=== PATIENT | male | born 1985 | race Caucasian/White ===

== ENCOUNTER 2017-09-09 17:17 | Emergency (ER) | payer OTHER ==
[2017-09-09 20:36] LABS: ABS Basophils 0.1 10^3/ul (0-0.2); ABS Eosinophils 0.2 10^3/ul (0-0.6); ABS Lymphocytes 3.3 10^3/ul (1.0-4.8); ABS Monocytes 0.4 10^3/ul (0-0.8); ABS Neutrophils 7.3 10^3/ul (1.5-7.7); ABS Nucleated RBC 0 10^3/ul; Eosinophil % 1.5 % (0-6); Hematocrit 47 % (42-52); Hemoglobin 16.2 g/dl (14.0-18.0); Lymphocyte % 29.1 % (25-47); Mean Corpuscular HGB Conc 34 g/dl (31-36); Mean Corpuscular Hemoglobin 28 pg (27-31); Mean Corpuscular Volume 83 fL (80-94); Mean Platelet Volume 9 um3 (7.4-10.4); Nucleated Red Blood Cells % 0; Platelet Count 236 10^3/ul (150-450); Red Blood Count 5.68 10^6/ul (4.0-5.4); Red Cell Distribution Width 14 % (10.5-15); White Blood Count 11.2 10^3/ul (3.5-10.8)
[2017-09-09] MEDS ORDERED: NS 0.9% 1000 ML* 1,000 ML IV ONE (20:55)
[2017-09-09 20:58] LABS: EGFR Non-African American 87.7 (>60)
--- NOTE | 2017-09-09 22:29 | RAD ---
INDICATION: Dizziness. COMPARISON: There are no prior studies available for comparison. TECHNIQUE: Contiguous axial sections of the brain were obtained from the skull base to the vertex without contrast. FINDINGS: The ventricles, cisterns and sulci are within normal limits. No significant focal abnormality or mass effect is seen. There is no evidence for hemorrhage. No significant focal osseous abnormality is seen. The visualized portion of the paranasal sinuses and mastoid air cells appear clear. IMPRESSION: NO EVIDENCE FOR ACUTE INTRACRANIAL ABNORMALITY.
[2017-09-09 23:08] VITALS: BP 127/81
--- NOTE | 2017-09-10 14:48 | ED ---
Joshua Restrepo Gabriel, scribed for Augie Joshua MD on 09/09/17 at 2054 . Dizziness - HPI Summary HPI Summary: This patient is a 31 year old M presenting to [facility] with a chief complaint of dizziness since yesterday. The patient describes it as poor balance/ lightheadedness worsened with ambulation. The patient rates the pain 0/10 in severity. Symptoms alleviated by lying. Patient denies nausea and poor PO intake. Patient denies blurred vision, v/d, and pain. Pt hashad similar symptoms in the past and was seen by a Local [employer] Associate in [facility] and diagnosed with arrhythmia for which he takes Metroprolol. - History Of Current Complaint Chief Complaint: EDDizziness Stated Complaint: DIZZY Time Seen by Provider: 09/09/17 20:39 Hx Obtained From: Patient Onset/Duration: Still Present Timing: Days - 1 Severity Initially: Mild Severity Currently: Mild Aggravating Factor(s): Other - walking Alleviating Factor(s): Rest, Lying Down Associated Signs And Symptoms: Positive: Negative - blurred vision, v/d, and pain., Other: - nausea and poor PO intakes. - Allergies/Home Medications Allergies/Adverse Reactions: Allergies Allergy/AdvReac Type Severity Reaction Status Date / Time No Known Allergies Allergy Verified 03/07/16 14:17 PMH/Surg Hx/FS Hx/Imm Hx Endocrine/Hematology History: Denies: Hx Anticoagulant Therapy, Hx Blood Disorders Cardiovascular History: Reports: Other Cardiovascular Problems/Disorders - PVC' s - no treated Respiratory History: Denies: Hx Asthma GI History: Denies: Hx Gastroesophageal Reflux Disease Musculoskeletal History: Denies: Hx Arthritis Sensory History: Reports: Hx Contacts or Glasses Opthamlomology History: Reports: Hx Contacts or Glasses Neurological History: Denies: Hx Headaches, Hx Migraine Psychiatric History: Denies: Hx Anxiety, Hx Depression Infectious Disease History: No Infectious Disease History: Denies: Traveled Outside the [place] in Last 30 Days - Family History Known Family History: Positive: Hypertension, Diabetes - Social History Occupation: Student Alcohol Use: Rare Hx Substance Use: No Substance Use Type: Reports: None Hx Tobacco Use: No Smoking Status (MU): Never Smoked Tobacco Review of Systems Positive: Other - decreased PO intake Negative: Blurred Vision Positive: Nausea. Negative: Vomiting, Diarrhea Musculoskeletal: Negative - pain Neurological: Other - dizziness All Other Systems Reviewed And Are Negative: Yes Physical Exam - Summary Physical Exam Summary: Appearance: Well-appearing, no distress, Well-nourished Skin: Warm, color reflects adequate perfusion Head: Normal Head/Face inspection Eyes: Conjunctiva clear without pallor; no nystagmus ENT: Normal inspection Neck: Supple, no nodes, no JVD. Respiratory: Lungs clear, Normal breath sounds, no respiratory distress Cardio: RRR, No murmur, pulses normal, brisk capillary refill Abdomen: soft, nontender, no guarding, no rebound Bowel sounds: present Musculoskeletal: Strength Intact/ ROM intact. No calf tenderness. No edema. Neuro: Alert, muscle tone normal, facial symmetry, speech normal, sensory/motor intact, cranial nerves intact II-XII Psychological: Normal Triage Information Reviewed: Yes Vital Signs On Initial Exam: Initial Vitals Temp Pulse Resp BP Pulse Ox 99.3 F 110 18 153/88 99 09/09/17 17:19 09/09/17 17:19 09/09/17 17:19 09/09/17 17:19 09/09/17 17:19 Vital Signs Reviewed: Yes Diagnostics - Vital Signs Vital Signs Temp Pulse Resp BP Pulse Ox 09/09/17 19:21 99.3 F 91 16 147/86 100 09/09/17 17:19 99.3 F 110 18 153/88 99 - Laboratory Lab Results: Lab Results 09/09/17 Range/Units 20:29 WBC 11.2 H (3.5-10.8) 10^3/ul RBC 5.68 H (4.0-5.4) 10^6/ul Hgb 16.2 (14.0-18.0) g/dl Hct 47 (42-52) % MCV 83 (80-94) fL MCH 28 (27-31) pg MCHC 34 (31-36) g/dl RDW 14 (10.5-15) % Plt Count 236 (150-450) 10^3/ul MPV 9 (7.4-10.4) um3 Neut % (Auto) 65.7 (38-83) % Lymph % (Auto) 29.1 (25-47) % [place] % (Auto) 3.2 (0-7) % Eos % (Auto) 1.5 (0-6) % Baso % (Auto) 0.5 (0-2) % Absolute Neuts (auto) 7.3 (1.5-7.7) 10^3/ul Absolute Lymphs (auto) 3.3 (1.0-4.8) 10^3/ul Absolute Monos (auto) 0.4 (0-0.8) 10^3/ul Absolute Eos (auto) 0.2 (0-0.6) 10^3/ul Absolute Basos (auto) 0.1 (0-0.2) 10^3/ul Absolute Nucleated RBC 0 10^3/ul Nucleated RBC % 0 Result Diagrams: 09/09/17 20:29 09/09/17 20:29 Lab Statement: Any lab studies that have been ordered have been reviewed, and results considered in the medical decision making process. - CT CT head CT Interpretation Completed By: Radiologist - NO EVIDENCE FOR ACUTE INTRACRANIAL ABNORMALITY. ED physician has reviewed this radiology report. - EKG 20:41 Cardiac Rate: NL EKG Rhythm: Sinus Rhythm - at 91 BPM EKG Interpretation: shortened PQ interval, normal axis, T wave inversion in V5 and V6 Re-Evaluation - Re-Evaluation First Eval Re-Evaluation Time: 22:36 Change: Improved - Pt resting comfortably in bed. Pt hemodynamically stable. pt dizziness resolved with IVF. Pt repeat CN exam intact II-XII. Dizzy Course/Dx - Diagnoses Differential Diagnosis/HQI/PQRI: Anxiety, Benign Paroxysmal Positional Vertigo, Coronary Artery Disease, CVA, Hypovolemia, Transient Ischemic Attack, Vasovagal Reaction Provider Diagnoses: Dizziness, Dehydration Discharge - Discharge Plan Condition: Improved Disposition: HOME Patient Education Materials: Dizziness (ED) Referrals: [facility] - [place] BLANCO [Primary Care Provider] - Additional Instructions: Please continue to drink lots of fluids to keep well hydrated. Please return to the Emergency Department if symptoms worsen or return. The documentation as recorded by the Joshua taylor Gabriel accurately reflects the service I personally performed and the decisions made by , Augie Joshua MD.
== END 2017-09-09 23:13 | disposition home or self-care (01) ==
LOC: ED 17:17
DX: R42 Dizziness and giddiness (principal); E86.0 Dehydration
CPT/HCPCS: 36415; 70450; 80053; 85025; 93005; 96360; 99283

== ENCOUNTER 2017-11-19 19:52 | Emergency (ER) | payer OTHER ==
[2017-11-19 22:23] LABS: ABS Basophils 0 10^3/ul (0-0.2); ABS Eosinophils 0.6 10^3/ul (0-0.6); ABS Lymphocytes 3.3 10^3/ul (1.0-4.8); ABS Monocytes 0.6 10^3/ul (0-0.8); ABS Neutrophils 5.5 10^3/ul (1.5-7.7); ABS Nucleated RBC 0 10^3/ul; Eosinophil % 6.4 % (0-6); Hematocrit 46 % (42-52); Hemoglobin 15.2 g/dl (14.0-18.0); Lymphocyte % 32.7 % (25-47); Mean Corpuscular HGB Conc 33 g/dl (31-36); Mean Corpuscular Hemoglobin 28 pg (27-31); Mean Corpuscular Volume 84 fL (80-94); Mean Platelet Volume 9.6 um3 (7.4-10.4); Nucleated Red Blood Cells % 0.1; Platelet Count 203 10^3/ul (150-450); Red Blood Count 5.45 10^6/ul (4.0-5.4); Red Cell Distribution Width 14 % (10.5-15); White Blood Count 10.1 10^3/ul (3.5-10.8)
[2017-11-19 22:34] LABS: INR 0.93 (0.77-1.02)
[2017-11-19 22:41] LABS: EGFR Non-African American 88.2 (>60)
--- NOTE | 2017-11-19 23:06 | ED ---
GI/ HPI - HPI Summary HPI Summary: rectal bleeding - hemorrhoids - 09/04 pain - sitx bath, miralax, prep H. sat long time, limited fluid intake denies danger s/sx - History of Current Complaint Chief Complaint: EDRectalPain Time Seen by Provider: 11/19/17 20:43 Stated Complaint: RECTAL BLEEDING Pain Intensity: 3 - Allergy/Home Medications Allergies/Adverse Reactions: Allergies Allergy/AdvReac Type Severity Reaction Status Date / Time No Known Allergies Allergy Verified 03/07/16 14:17 Home Medications: Home Medications Metoprolol Tartrate TAB* 25 mg PO DAILY 11/19/17 [History Confirmed 11/19/17] PMH/Surg Hx/FS Hx/Imm Hx Endocrine/Hematology History: Denies: Hx Anticoagulant Therapy, Hx Blood Disorders Cardiovascular History: Reports: Other Cardiovascular Problems/Disorders - PVC' s - no treated Respiratory History: Denies: Hx Asthma GI History: Denies: Hx Gastroesophageal Reflux Disease Musculoskeletal History: Denies: Hx Arthritis Sensory History: Reports: Hx Contacts or Glasses Opthamlomology History: Reports: Hx Contacts or Glasses Neurological History: Denies: Hx Headaches, Hx Migraine Psychiatric History: Denies: Hx Anxiety, Hx Depression Infectious Disease History: No Infectious Disease History: Denies: Traveled Outside the [place] in Last 30 Days - Family History Known Family History: Positive: Hypertension, Diabetes - Social History Alcohol Use: Rare Hx Substance Use: No Substance Use Type: Reports: None Hx Tobacco Use: No Smoking Status (MU): Never Smoked Tobacco Physical Exam Vital Signs On Initial Exam: Initial Vitals Temp Pulse Resp BP Pulse Ox 98.7 F 89 16 150/90 99 11/19/17 20:05 11/19/17 20:05 11/19/17 20:05 11/19/17 20:05 11/19/17 20:05 Diagnostics - Vital Signs Vital Signs Temp Pulse Resp BP Pulse Ox 11/19/17 20:05 98.7 F 89 16 150/90 99 - Laboratory Lab Results: Lab Results 11/19/17 11/19/17 11/19/17 Range/Units 22:14 22:14 22:14 WBC 10.1 (3.5-10.8) 10^3/ul RBC 5.45 H (4.0-5.4) 10^6/ul Hgb 15.2 (14.0-18.0) g/dl Hct 46 (42-52) % MCV 84 (80-94) fL MCH 28 (27-31) pg MCHC 33 (31-36) g/dl RDW 14 (10.5-15) % Plt Count 203 (150-450) 10^3/ul MPV 9.6 (7.4-10.4) um3 Neut % (Auto) 54.7 (38-83) % Lymph % (Auto) 32.7 (25-47) % [place] % (Auto) 5.7 (0-7) % Eos % (Auto) 6.4 H (0-6) % Baso % (Auto) 0.5 (0-2) % Absolute Neuts (auto) 5.5 (1.5-7.7) 10^3/ul Absolute Lymphs (auto) 3.3 (1.0-4.8) 10^3/ul Absolute Monos (auto) 0.6 (0-0.8) 10^3/ul Absolute Eos (auto) 0.6 (0-0.6) 10^3/ul Absolute Basos (auto) 0 (0-0.2) 10^3/ul Absolute Nucleated RBC 0 10^3/ul Nucleated RBC % 0.1 INR (Anticoag Therapy) 0.93 (0.77-1.02) APTT 26.8 (26.0-36.3) seconds Sodium 136 L (139-145) mmol/L Potassium 4.5 (3.5-5.0) mmol/L Chloride 102 (101-111) mmol/L Carbon Dioxide 27 (22-32) mmol/L Anion Gap 7 (2-11) mmol/L BUN 12 (6-24) mg/dL Creatinine 0.99 (0.67-1.17) mg/dL Est GFR ( Amer) 113.4 (>60) Est GFR (Non-Af Amer) 88.2 (>60) BUN/Creatinine Ratio 12.1 (8-20) Glucose 103 H (70-100) mg/dL Calcium 10.0 (8.6-10.3) mg/dL Total Bilirubin 0.40 (0.2-1.0) mg/dL AST 26 (13-39) U/L ALT 31 (7-52) U/L Alkaline Phosphatase 57 (34-104) U/L Total Protein 7.7 (6.4-8.9) g/dL Albumin 4.6 (3.2-5.2) g/dL Globulin 3.1 (2-4) g/dL Albumin/Globulin Ratio 1.5 (1-3) Blood Type Antibody Screen 11/19/17 Range/Units 22:14 WBC (3.5-10.8) 10^3/ul RBC (4.0-5.4) 10^6/ul Hgb (14.0-18.0) g/dl Hct (42-52) % MCV (80-94) fL MCH (27-31) pg MCHC (31-36) g/dl RDW (10.5-15) % Plt Count (150-450) 10^3/ul MPV (7.4-10.4) um3 Neut % (Auto) (38-83) % Lymph % (Auto) (25-47) % [place] % (Auto) (0-7) % Eos % (Auto) (0-6) % Baso % (Auto) (0-2) % Absolute Neuts (auto) (1.5-7.7) 10^3/ul Absolute Lymphs (auto) (1.0-4.8) 10^3/ul Absolute Monos (auto) (0-0.8) 10^3/ul Absolute Eos (auto) (0-0.6) 10^3/ul Absolute Basos (auto) (0-0.2) 10^3/ul Absolute Nucleated RBC 10^3/ul Nucleated RBC % INR (Anticoag Therapy) (0.77-1.02) APTT (26.0-36.3) seconds Sodium (139-145) mmol/L Potassium (3.5-5.0) mmol/L Chloride (101-111) mmol/L Carbon Dioxide (22-32) mmol/L Anion Gap (2-11) mmol/L BUN (6-24) mg/dL Creatinine (0.67-1.17) mg/dL Est GFR ( Amer) (>60) Est GFR (Non-Af Amer) (>60) BUN/Creatinine Ratio (8-20) Glucose (70-100) mg/dL Calcium (8.6-10.3) mg/dL Total Bilirubin (0.2-1.0) mg/dL AST (13-39) U/L ALT (7-52) U/L Alkaline Phosphatase (34-104) U/L Total Protein (6.4-8.9) g/dL Albumin (3.2-5.2) g/dL Globulin (2-4) g/dL Albumin/Globulin Ratio (1-3) Blood Type AB Positive Antibody Screen Pending Result Diagrams: 11/19/17 22:14 11/19/17 22:14 Lab Statement: Any lab studies that have been ordered have been reviewed, and results considered in the medical decision making process. Discharge - Sign-Out/Discharge Documenting (check all that apply): Discharge/Admit/Transfer - Discharge Plan Condition: Stable Disposition: HOME Patient Education Materials: Rectal Bleeding (ED), Hemorrhoids (ED) Referrals: [facility] - [place] BLANCO [Medical Doctor] - Elgin Real MD [Medical Doctor] - - Billing Disposition and Condition Condition: STABLE Disposition: HOME
[2017-11-20 00:03] VITALS: BP 148/89
== END 2017-11-19 23:58 | disposition home or self-care (01) ==
LOC: ED 19:52
DX: K62.5 Hemorrhage of anus and rectum (principal); K64.9 Unspecified hemorrhoids
CPT/HCPCS: 36415; 80053; 85025; 85610; 85730; 86850; 86900; 86901; 99282

== ENCOUNTER 2018-03-27 12:32 | Emergency (ER) | payer OTHER ==
[2018-03-27 12:45] VITALS: BP 151/85
--- NOTE | 2018-03-27 12:48 | UC ---
Lower Extremity/Ankle HPI - HPI Summary HPI Summary: 32 yo male presents with b/l lower leg pain for the last week. He tells me that he recently moved to a new apartment and is at [facility]. He does a lot of walking and running. Towards the end of the day he will have b/l posterior lower leg pain. He has taken naproxen which helps his pain, but it will come back the next day. He mentions that 1 month ago he returned from [facility] via plane. He denies specific injury, SOB, chest pain, numbness, tingling, hx of cancer, or smoking. - History of Current Complaint Chief Complaint: UCLowerExtremity Stated Complaint: LEG PAIN Time Seen by Provider: 03/27/18 12:47 Hx Obtained From: Patient Onset/Duration: Gradual Onset Severity Initially: Mild Severity Currently: Moderate Pain Intensity: 7 Pain Scale Used: 0-10 Numeric Aggravating Factor(s): Standing, Ambulation Alleviating Factor(s): Rest, Elevation, OTC Meds Able to Bear Weight: Yes - Allergies/Home Medications Allergies/Adverse Reactions: Allergies Allergy/AdvReac Type Severity Reaction Status Date / Time No Known Allergies Allergy Verified 03/27/18 12:37 Home Medications: Home Medications Atorvastatin* [Lipitor 10 MG*] 10 mg PO DAILY 03/27/18 [History Confirmed ] Metoprolol Tartrate TAB* [Lopressor TAB*] 25 mg PO DAILY 03/27/18 [History Confirmed 03/27/18] Naproxen [Naproxen 500 mg tab] 500 mg PO DAILY PRN 03/27/18 [History Confirmed 03/27/18] PMH/Surg Hx/FS Hx/Imm Hx Endocrine History: Dyslipidemia Cardiovascular History: Hypertension Other History Of: Negative For: Anticoagulant Therapy - Surgical History Surgical History: None - Family History Known Family History: Positive: Hypertension, Diabetes - Social History Occupation: Employed Full-time Lives: With Family Alcohol Use: Rare Substance Use Type: None Smoking Status (MU): Never Smoked Tobacco Review of Systems Constitutional: Negative Skin: Negative Respiratory: Negative Cardiovascular: Negative Neurovascular: Negative Musculoskeletal: Other: - B/L lower leg pain Neurological: Negative Psychological: Negative All Other Systems Reviewed And Are Negative: Yes Physical Exam - Summary Physical Exam Summary: GENERAL: NAD. WDWN. No pain distress. SKIN: No rashes, sores, lesions, or open wounds. CHEST: No accessory muscle use. Breathing comfortably and in no distress. CV: Pulses intact PT and DP. Cap refill <2seconds MSK: B/L lower leg: L>R achilles TTP extending to mid calf. No palpable cord or varicose veins. FROM at ankle and knee - pain worse with dorsiflexion. Strength 5/5. No edema or erythema. Negative talar tilt. No increased laxity. Negative [place] test. NEURO: Alert. Sensations intact and symmetric B/L LEs PSYCH: Age appropriate behavior. Triage Information Reviewed: Yes Vital Signs: Initial Vital Signs Temp 99 F 03/27/18 12:40 Pulse 91 03/27/18 12:40 Resp 16 03/27/18 12:40 BP 151/85 03/27/18 12:40 Pulse Ox 100 03/27/18 12:40 Vital Signs Reviewed: Yes Lower Extremity Course/Dx - Course Course Of Treatment: Wells DVT score is 0. Suspect achilles tendinitis. Offered pt post-op shoe, CAM boot, or crutches - he declined and elected to continue naproxen and will try OTC shoe inserts. Advised to f/u if his symptoms persist or worsen. - Differential Dx/Diagnosis Provider Diagnoses: B/L achilles tendinitis Discharge - Sign-Out/Discharge Documenting (check all that apply): Patient Departure All imaging exams completed and their final reports reviewed: No Studies - Discharge Plan Condition: Stable Disposition: HOME Patient Education Materials: Achilles Tendinitis (ED) Referrals: [facility] - [place] [Primary Care Provider] - Additional Instructions: If you develop a fever, shortness of breath, chest pain, new or worsening symptoms - please call your PCP or go to the ED. Your blood pressure was mildly elevated at todays visit. Please see your primary provider within 4 weeks for recheck and re-evaluation. 1) Please try an [id number] shoe insert in your shoes to reduce pain 2) Keep taking the naproxen every 6-8 hours for pain 3) If your symptoms continue, please be rechecked - Billing Disposition and Condition Condition: STABLE Disposition: Home
== END 2018-03-27 13:00 | disposition home or self-care (01) ==
LOC: UCEAST 12:32
DX: M76.62 Achilles tendinitis, left leg (principal); M76.61 Achilles tendinitis, right leg; E78.5 Hyperlipidemia, unspecified; I10 Essential (primary) hypertension
CPT/HCPCS: 99211; G0463

== ENCOUNTER 2018-03-28 14:44 | Emergency (ER) | payer OTHER ==
--- NOTE | 2018-03-28 17:13 | ED ---
Lower Extremity - HPI Summary HPI Summary: Patient presents with concern for DVT in his left calf. He reports he returned from [place] one month ago which was a long flight. 10 days ago he developed bilateral calf pain but today noticed the left is worse than the right. He does admit he spent time moving into a new residence upon his return and has been carrying, lifting, moving furniture, etc. since. He is been sore all over but is concerned about persistent left calf pain despite taking naproxen. Naproxen does help on its in his system. Denies chest pain, shortness of breath , fever, chills, bloody cough, cough. Additionally he denies smoking, hormone therapy, history of cancer or clotting, trauma to the area and his lower extremity. He has been eating, drinking and sleeping well without difficulty. He was seen at [facility] prior to arrival here was diagnosed with tendinitis. He is here because he is anxious about a possible DVT. - History of Current Complaint Chief Complaint: EDExtremityLower Stated Complaint: LT LEG PAIN Time Seen by Provider: 03/28/18 16:18 Hx Obtained From: Patient Pain Intensity: 4 - Allergies/Home Medications Allergies/Adverse Reactions: Allergies Allergy/AdvReac Type Severity Reaction Status Date / Time No Known Allergies Allergy Verified 03/28/18 14:48 PMH/Surg Hx/FS Hx/Imm Hx Previously Healthy: Yes Endocrine/Hematology History: Denies: Hx Anticoagulant Therapy, Hx Blood Disorders, Hx Diabetes, Hx Thyroid Disease, Hx Anemia, Hx Unexplained Bleeding Cardiovascular History: Reports: Hx Hypertension, Other Cardiovascular Problems/ Disorders - PVC's - no treated Respiratory History: Denies: Hx Asthma, Hx Chronic Obstructive Pulmonary Disease (COPD) GI History: Reports: Other GI Disorders - hemorrhoids Denies: Hx Cirrhosis, Hx Crohn's Disease, Hx Diverticulosis, Hx Gall Bladder Disease, Hx Gastroesophageal Reflux Disease, Hx Gastrointestinal Bleed, Hx Hiatal Hernia, Hx Irritable Bowel, Hx Ulcer Musculoskeletal History: Denies: Hx Arthritis Sensory History: Reports: Hx Contacts or Glasses Opthamlomology History: Reports: Hx Contacts or Glasses Neurological History: Denies: Hx Headaches, Hx Migraine Psychiatric History: Reports: Hx Anxiety Denies: Hx Depression Infectious Disease History: No Infectious Disease History: Reports: Traveled Outside the [place] in Last 30 Days - [place] 1 month ago Denies: Hx Hepatitis, Hx Human Immunodeficiency Virus (HIV) - Family History Known Family History: Positive: Hypertension, Diabetes - Social History Occupation: Student Lives: Dormitory/Roommates Alcohol Use: None Hx Substance Use: No Substance Use Type: Reports: None Hx Tobacco Use: No Smoking Status (MU): Never Smoked Tobacco Review of Systems Constitutional: Negative Negative: Fever, Chills, Fatigue Cardiovascular: Negative Respiratory: Negative Gastrointestinal: Negative Positive: no symptoms reported Positive: Myalgia. Negative: Decreased ROM, Edema Skin: Negative Neurological: Negative Positive: Anxious All Other Systems Reviewed And Are Negative: Yes Physical Exam Triage Information Reviewed: Yes Vital Signs On Initial Exam: Initial Vitals Temp Pulse Resp BP Pulse Ox 98.2 F 88 17 149/95 100 03/28/18 14:45 03/28/18 14:45 03/28/18 14:45 03/28/18 14:45 03/28/18 14:45 Vital Signs Reviewed: Yes Appearance: Positive: Well-Appearing, No Pain Distress, Thin Skin: Positive: Warm, Skin Color Reflects Adequate Perfusion, Dry - no erythema , no ecchymosis, no lesions over LE's B/L Head/Face: Positive: Normal Head/Face Inspection Eyes: Positive: EOMI ENT: Positive: Hearing grossly normal Respiratory/Lung Sounds: Positive: Breath Sounds Present Cardiovascular: Positive: Normal, Pulses are Symmetrical in both Upper and Lower Extremities, Other - mild TTP Lt calf, S1, S2. Negative: Leg Edema Left, Leg Edema Right Musculoskeletal: Positive: Strength/ROM Intact - B/L LE w/ 5/5 strength and no pain w/ resisted movements, Pain @ - Lt calf w/ mild TTP Neurological: Positive: Normal, Sensory/Motor Intact, Alert, Oriented to Person Place, Time, CN Intact II-III Psychiatric: Positive: Anxious Diagnostics - Vital Signs Vital Signs Temp Pulse Resp BP Pulse Ox 03/28/18 14:45 98.2 F 88 17 149/95 100 - Laboratory Lab Statement: Any lab studies that have been ordered have been reviewed, and results considered in the medical decision making process. Lower Extremity Course/Dx - Course Course Of Treatment: LLE U/S: no DVT. Agree w/ intial evaluation at [facility] - most likely tendonitis 2ndry to increased activity/weight bearing, etc. Follow d/c instructions from . If danger s/sx present, return to ED - Diagnoses Provider Diagnoses: Tendonitis Discharge - Sign-Out/Discharge Documenting (check all that apply): Patient Departure - Discharge Plan Condition: Stable Disposition: HOME Patient Education Materials: Tendinitis (ED) Referrals: [facility] - [place] BLANCO [Primary Care Provider] - Additional Instructions: You do not appear to have a clot in your leg. Follow previous discharge instructions. *If worse, return to ED - Billing Disposition and Condition Condition: STABLE Disposition: Home
--- NOTE | 2018-03-28 17:17 | RAD ---
INDICATION: Left calf pain. COMPARISON: There are no relevant prior studies available for comparison. TECHNIQUE: Multiple real-time, color flow and Doppler tracings of the left lower extremity were obtained. FINDINGS: The common femoral, femoral, profunda femoral and popliteal veins all demonstrate normal compressibility, augmentation with compression and phasic response with respiration. The posterior tibial and peroneal veins demonstrate normal compressibility and augmentation with compression. IMPRESSION: NO EVIDENCE FOR DEEP VENOUS THROMBOSIS.
[2018-03-28 17:49] VITALS: BP 137/77
== END 2018-03-28 17:49 | disposition home or self-care (01) ==
LOC: ED 14:44
DX: M77.9 Enthesopathy, unspecified (principal)
CPT/HCPCS: 99282